=== PATIENT | female | born 1960 | race Asian ===

== ENCOUNTER 2018-06-28 11:52 | Emergency (ER) | payer OTHER ==
[~2018-06-28] VITALS: Ht 162.6 cm; Wt 67.1 kg
[2018-06-28 12:01] VITALS: BP 112/73
[2018-06-28 13:08] VITALS: BP 115/71
== END 2018-06-28 13:08 | disposition home or self-care (01) ==
LOC: MED 11:52
DX: R03.0 Elevated blood-pressure reading, without diagnosis of hypertension (principal); R42 Dizziness and giddiness
CPT/HCPCS: 81002; 81025; 99283

== ENCOUNTER 2019-12-20 17:44 | Emergency (ER) | payer OTHER, SELFPAY ==
[~2019-12-20] VITALS: Ht 162.6 cm; Wt 63.5 kg
[2019-12-20 17:51] VITALS: BP 166/127
--- NOTE | 2019-12-20 18:03 | NUR ---
PT AMBULATED TO BED 9.
[2019-12-20] MEDS ORDERED: NACL 0.9% 1,000 ML IV ONE (18:10)
[2019-12-20] MEDS ORDERED: hydrALAZINE 20 MG/ML VIAL IVP ONE (18:10)
[2019-12-20] MEDS ORDERED: ONDANSETRON 4 MG/2 ML VIAL IVP ONE (18:10)
--- NOTE | 2019-12-20 18:15 | NUR ---
PT BIB FAMILY MEMBER C/O DIZZINESS/ROOM SPINNING, NAUSEA, AND VOMITING STARTED THIS MORNING. DENIES CP, COUGH, FEVER, SOB, DIARRHEA, RUNNY NOSE, SORE THROAT, RECENT TRAVEL, OR SICK CONTACTS. PATIENT STATES PAIN OF 0/10 AT THIS TIME; VSS; PATIENT POSITIONED FOR COMFORT; HOB ELEVATED; BEDRAILS UP X2; BED DOWN. ER MD MADE AWARE OF PT STATUS. PT IS ON THE MONITOR.
[2019-12-20 18:34] LABS: BASOPHILS # (AUTO) 0.1 K/uL (0.00-0.22); BASOPHILS % (AUTO) 0.9 % (0.0-2.0); EOSINOPHILS # (AUTO) 0.1 K/uL (0-0.4); EOSINOPHILS % (AUTO) 0.6 % (0.0-4.0); HEMATOCRIT 39.8 % (36-48); HEMOGLOBIN 13.1 g/dL (12.0-16.0); LYMPHOCYTES # (AUTO) 2.3 K/uL (2.5-16.5); MEAN CORPUSCULAR HEMOGLOBIN 29 pg (27-31); MEAN CORPUSCULAR HGB CONC 33 g/dL (33-37); MEAN CORPUSCULAR VOLUME 88.9 fL (80-94); MONOCYTES # (AUTO) 0.4 K/uL (0.8-1.0); NEUTROPHILS # (AUTO) 7.9 K/uL (1.8-7.7); NEUTROPHILS % (AUTO) 73.5 % (42.2-75.2); PLATELET COUNT (AUTO) 225 K/uL (140-450); RED BLOOD CELL COUNT(AUTO) 4.48 MIL/uL (4.20-5.40); RED CELL DISTRIBUTION WIDTH 13.4 % (11.6-13.7); WHITE BLOOD COUNT (AUTO) 10.7 K/uL (4.8-10.8)
[2019-12-20 18:49] LABS: ALBUMIN 4.2 g/dL (3.4-5.0); ANION GAP 9.8 (8-16); CARBON DIOXIDE 30.4 mmol/L (21-32); CREATININE 0.8 mg/dL (0.6-1.3); POTASSIUM 3.2 mmol/L (3.5-5.1); TOTAL BILIRUBIN 0.3 mg/dL (0.0-1.0)
[2019-12-20 18:49] LABS: APPEARANCE,URINE CLEAR (CLEAR); BILIRUBIN,URINE NEGATIVE (NEGATIVE); BLOOD, URINE NEGATIVE (NEGATIVE); COLOR,URINE YELLOW (YELLOW); LEUKOCYTE ESTERASE ,URINE NEGATIVE (NEGATIVE); NITRITE, URINE NEGATIVE (NEGATIVE); PH,URINE 6.5 (5.0-9.0); UGLUCOSE NEGATIVE (NEGATIVE)
[2019-12-20] MEDS ORDERED: POTASSIUM CHLORIDE 10 MEQ TABER PO ONE (18:55)
--- NOTE | 2019-12-20 19:01 | NUR ---
EKG PERFORMED AT BEDSIDE
--- NOTE | 2019-12-20 19:17 | NUR ---
Pt report given to FERNANDA Krishnan. Transfer of care at this time.
--- NOTE | 2019-12-20 19:20 | NUR ---
REPORT RECIVED BY JEFF MICHAEL. CONTINUATION OF CARE.
--- NOTE | 2019-12-20 20:39 | NUR ---
DR. LISA BEDSIDE EVALUATING PT
--- NOTE | 2019-12-20 20:45 | NUR ---
PT RESTING IN BED WITH EYES OPEN AND TALKING ON PHONE. RESPIRATIONS ARE EVEN AND UNLABORED. SKIN IS WARM AND DRY TO TOUCH. PT ON RF ENGINEER. VSS. IV SITE IS PATENT. NO REDNESS, SWELLING, OR C/O PAIN AT THIS TIME.
--- NOTE | 2019-12-20 21:30 | NUR ---
COVID SWAB COLLECTED. PRESSURE SUPERVISOR CAME TO ADMINISTRATIVE ASST.
--- NOTE | 2019-12-20 21:52 | NUR ---
EKG BEING DONE AT BEDSIDE.
--- NOTE | 2019-12-20 21:53 | NUR ---
SECOND EKG PERFORMED AT BEDSIDE
--- NOTE | 2019-12-20 22:29 | NUR ---
IV removed, catheter intact and site benign. Applied folded 4x4 gauze and tape to stop bleeding.
[2019-12-20 22:30] VITALS: BP 112/67
--- NOTE | 2019-12-20 22:30 | NUR ---
Patient discharged with v/s stable. Written and verbal after care instructions given and explained. Patient verbalized understanding. Ambulatory with steady gait. All questions addressed prior to discharge. Advised to follow up with PMD.
== END 2019-12-20 22:30 | disposition home or self-care (01) ==
LOC: EEVIPCON 17:44 → MED 17:44
DX: R11.2 Nausea with vomiting, unspecified (principal); E87.6 Hypokalemia; I10 Essential (primary) hypertension
CPT/HCPCS: 36415; 71045; 80053; 81003; 84484; 85025; 93005; 96361; 96374; 96375; 99285; J0360; J2405; Q0092; J7030

== ENCOUNTER 2021-08-27 10:27 | Emergency (ER) | payer BC, OTHER, SELFPAY ==
[~2021-08-27] VITALS: Ht 165.1 cm; Wt 68.0 kg
[2021-08-27 10:50] VITALS: BP 152/93
[2021-08-27] MEDS ORDERED: PROM118S5 PO (11:59)
[2021-08-27] MEDS ORDERED: PRED20TA5 PO (11:59)
[2021-08-27 12:32] VITALS: BP 152/93
--- NOTE | 2021-08-27 12:32 | NUR ---
NO NURSING INTERVENTIONS PROVIDED
--- NOTE | 2021-08-27 12:33 | NUR ---
Patient discharged with v/s stable. Written and verbal after care instructions ABOUT COUGH given and explained. Patient alert, oriented and verbalized understanding of instructions. Ambulatory with steady gait. All questions addressed prior to discharge. ID band removed. Patient advised to follow up with PMD. Rx of DELTASONE AND PROMETHAZINE-DM SYRUP given. Patient educated on indication of medication including possible reaction and side effects. Opportunity to ask questions provided and answered.
== END 2021-08-27 12:33 | disposition home or self-care (01) ==
LOC: MED 10:27
DX: R05.9 Cough, unspecified (principal); R06.02 Shortness of breath; R07.9 Chest pain, unspecified; M54.9 Dorsalgia, unspecified; I10 Essential (primary) hypertension; Z79.899 Other long term (current) drug therapy
CPT/HCPCS: 71045; 99283